=== PATIENT | female | born 1935 | race Caucasian/White ===

== ENCOUNTER 2020-11-07 16:41 | Emergency (ER) | payer OTHER ==
[~2020-11-07] VITALS: Ht 167.6 cm; Wt 68.0 kg
--- NOTE | ~2020-11-07 | EMS ---
[address] [address] EMS Patient Care Report Name: MODESTO MCCONNELL Room #: PRE ALMAZ M.RGrayson#: [id number] Admission: Attend Phys: Discharge: Date of : 33 Report #: [id number] THIS REPORT FOR: //name// Report Transmitted: 11/07/2020 16:38 EMS Care Summary [facility] MED-ACT Incident [id number] @ 11/07/2020 15:55 Incident Location [address] [place] [address] Patient MODESTO MCCONNELL Female, 85 Years 1935 Patient Address [address] [place] [address] Patient History Hypertension (HTN),Seizures,Stroke/CVA,Gastro-Esophageal Reflux Disease (GERD),Anxiety Disorder (Panic Attacks),Anxiety,Anemia,Insomnia, Patient Allergies Penicillin allergy,Sulfa,Cipro, Patient Medications Atorvastatin, Keppra, Acetaminophen, Carvedilol, Trazodone, Chief Complaint Abnormal Labs Disposition Transported No Lights/[place] Dispatch Reason Sick Person Transported To [facility] Narrative [id number] called to a rehab facility on abnormal labs; arrive to find an AO / [address] [address] EMS Patient Care Report Name: MODESTO MCCONNELL Room #: ALESSIO Mccartney.#: [id number] Admission: Attend Phys: Discharge: Date of : 33 Report #: [id number] confusion 85 y/o f seated in wheelchair in room. PT is being transported to the ED for evaluation of Abnormal Labs (HGB of 7) and a fever. Staff states PT is at baseline mentation and she is at the facility to regain strength. Staff states PT was found to have a temp and a low HGB this afternoon. Staff states PT had a (-)COVID rapid test today. Staff is unable to provide further HPI / PMH information. PT states she feels like she always does and is not sure why she is being shipped out again. PT denies blood in stool and urine. PT has eden in place with no urine in bag. States eden has not been changed in a weeks time. PT denies all new complaints. Staff states they placed PT on 2lpm O2 for low sats just [employer]. O2 is d/c and SOP2 remains WNL. PT is assisted from chair to cot in room. PT is seated and secured to cot in position of comfort and is loaded in ambulance. En route. PT states she has not had a BM in three days and reports mild abdominal discomfort. PT states this is normal for her BM cycle and states discomfort is at baseline. PT remains at baseline mentation and in stable with no complaints throughout duration of PT contact. PT is transferred to ED RN at baseline mentation and in stable condition. PT is lift assisted from cot to ED bed via crew and ED staff, in ED room. Initial Vitals @16:17P: 91, @16:18P: 67,SpO2: 94, @16:25Temp: 100.1F,Glucose: 118, @16:28P: 64,R: 16,BP: 137/52,Pain: 0/10,GCS: 14,SpO2: 96,Revised Trauma: 12, @16:16P: 66,R: 16,BP: 138/65,GCS: 14,SpO2: 95,Revised Trauma: 12, Assessments @16:15MENTAL:Confused,Person Oriented,Event Oriented,Place Oriented,SKIN:Hot,Pale,HEENT:Eyes: Left Pupil: 3-mm,Eyes: Right Pupil: 3-mm,Head/Face: No Abnormalities,Neck/Airway: No Abnormalities,LUNG SOUNDS:General: Other,ABDOMEN:General: Other,PELVIS//GI:EXTREMITIES:Left Arm: No Abnormalities,Right Arm: No Abnormalities,Left Leg: No Abnormalities,Right Leg: No Abnormalities,PULSE:NEURO:No Abnormalities, Impression COVID-19 - Suspected - no known exposure Procedures @16:15Surgical Mask on PatientResponse: Unchanged Timeline 15:53,Call Received [address] [address] EMS Patient Care Report Name: MODESTO MCCONNELL Room #: PRE ER M.R.#: [id number] Admission: Attend Phys: Discharge: Date of : 33 Report #: [id number] 15:53,Psap Call 15:55,Dispatched 15:56,En Route 16:07,On Scene 16:12,At Patient 16:15,Surgical Mask on Patient,Response: Unchanged 16:16,BP: 138/65 M,PULSE: 66,RR: 16 R,SPO2: 95 Ox,ETCO2: ,BG: ,PAIN: ,GCS: 14, 16:17,BP: / M,PULSE: 91,RR: R,SPO2: Ox,ETCO2: ,BG: ,PAIN: ,GCS: , 16:18,BP: / M,PULSE: 67,RR: R,SPO2: 94 Ox,ETCO2: ,BG: ,PAIN: ,GCS: , 16:23,Depart Scene 16:25,BP: / M,PULSE: ,RR: R,SPO2: Ox,ETCO2: ,B,PAIN: ,GCS: , 16:28,BP: 137/52 M,PULSE: 64,RR: 16 R,SPO2: 96 Ox,ETCO2: ,BG: ,PAIN: 0,GCS: 14, 16:34,At Destination 16:52,Call Closed Disclaimer v1.1 Copyright 2020 [employer] This EMS Care Summary contains data elements from the applicable legal record (which may be displayed differently). It is designed to provide pertinent information for the following purposes: continuity of care, clinical quality, and state data reporting. The complete legal record is available to ED staff and administrators of the receiving hospital in [employer]'s Patient Tracker. All data is provided "as is."
[2020-11-07 17:21] LABS: HEMATOCRIT 24.6 % (37.0-47.0); HEMOGLOBIN 7.9 gm/dL (12.0-15.0); MCH 28.9 pg (26.0-34.0); MCHC 32.1 g/dL (28.0-37.0); MCV 90.1 fL (80.0-100.0); RBC 2.74 mil/uL (4.20-5.00); RDW 19.9 % (10.5-14.5); WBC 2.9 thou/uL (4.0-11.0)
[2020-11-07] MEDS ORDERED: ACETAMINOPHEN650 M5 PO (17:24)
[2020-11-07] MEDS ORDERED: LIPITOR40 MG PO (17:25)
[2020-11-07] MEDS ORDERED: VITAMIN C500 M2 PO (17:25)
[2020-11-07] MEDS ORDERED: CARVEDILOL6.25 M1 PO (17:26)
[2020-11-07] MEDS ORDERED: PLAVIX 75 MG TA75 MG PO (17:27)
[2020-11-07] MEDS ORDERED: CLORAZEPATE D3.75 M1 PO (17:29)
[2020-11-07] MEDS ORDERED: COENZYME Q-1030 MG PO (17:30)
[2020-11-07] MEDS ORDERED: ESTRADIOL 1 MG T1 M1 PO (17:30)
[2020-11-07] MEDS ORDERED: ACID CONTROLLER20 MG PO (17:31)
[2020-11-07] MEDS ORDERED: FLONASE 0.05%50 MCG NARES (17:31)
[2020-11-07] MEDS ORDERED: SUPER THERAVIT1 EACH PO (17:32)
[2020-11-07] MEDS ORDERED: KEPPRA XR750 MG PO (17:32)
[2020-11-07] MEDS ORDERED: MIRALAX119 GM PO (17:33)
[2020-11-07] MEDS ORDERED: SYNTHROID100 MC1 PO (17:33)
[2020-11-07] MEDS ORDERED: TRAZODONE HCL50 MG PO (17:34)
[2020-11-07] MEDS ORDERED: FLOMAX0.4 MG PO (17:34)
[2020-11-07 17:47] LABS: ABSOLUTE NEUTROPHILS 1.6 thou/uL (1.4-8.2); ANISOCYTOSIS 2+
[2020-11-07 17:49] LABS: PLATELET COUNT 90 thou/uL (150-400); POLYCHROMASIA OCCASIONAL
[2020-11-07 18:00] LABS: URINE BILIRUBIN NEGATIVE (Negative); URINE BLOOD 3+ (Negative); URINE CLARITY SL CLOUDY; URINE COLOR YELLOW; URINE GLUCOSE-RANDOM* NEGATIVE (Negative); URINE KETONES NEGATIVE (Negative); URINE PROTEIN (DIPSTICK) 1+ (Negative); URINE SPECIFIC GRAVITY >= 1.030 (1.005-1.035)
[2020-11-07 18:05] LABS: URINE LEUKOCYTES-REFLEX 2+ (Negative); URINE NITRITE-REFLEX POSITIVE (Negative)
[2020-11-07 18:09] LABS: BACTERIA-REFLEX >30 Many /HPF (None Seen); URINE WBC-REFLEX >25 Many /HPF (0-5)
[2020-11-07 18:10] LABS: CALCIUM OXALATE 0-3 Few /LPF (None Seen); CASTS None Seen /LPF (None Seen); SQUAMOUS 0-3 Few /LPF (0-3); URINE RBC 3-10 Few /HPF (0-2)
[2020-11-07 18:20] LABS: CALCIUM 9.1 mg/dL (8.5-10.1); POTASSIUM 3.5 mmol/L (3.5-5.1)
[2020-11-07 18:26] LABS: ALBUMIN 2.4 g/dL (3.4-5.0); TOTAL BILIRUBIN 0.7 mg/dL (0.2-1.0); TOTAL PROTEIN 5.1 g/dL (6.4-8.2)
[2020-11-07 21:52] VITALS: BP 162/65
== END 2020-11-07 21:54 | disposition short-term general hospital (02) ==
LOC: ER 16:41
PROVIDERS: Emergency Medicine
DX: K92.2 Gastrointestinal hemorrhage, unspecified (principal); D64.9 Anemia, unspecified; Z79.01 Long term (current) use of anticoagulants; Z79.899 Other long term (current) drug therapy; Z88.0 Allergy status to penicillin; Z88.1 Allergy status to other antibiotic agents; Z88.2 Allergy status to sulfonamides; Z88.8 Allergy status to other drugs, medicaments and biological substances; Z91.040 Latex allergy status; Z87.891 Personal history of nicotine dependence; Z20.828 Contact with and (suspected) exposure to other viral communicable diseases